=== PATIENT | female | born 1960 | race Caucasian/White ===

== ENCOUNTER → 2017-04-01 | Outpatient (CLI) | payer OTHER ==
[~2017-04-01] MED LIST: BROM5CAP11 PO; CHOL10002 PO; GLUC1500 PO; PHEN100C PO
== END | disposition home or self-care (01) ==
LOC: CFH 11:11
PROVIDERS: ATTEND Nurse Practitioner
DX: Z12.31 Encounter for screening mammogram for malignant neoplasm of breast (principal); M85.88 Other specified disorders of bone density and structure, other site
CPT/HCPCS: 77080; G0202

== ENCOUNTER → 2017-12-29 | Outpatient (CLI) | payer OTHER ==
[~2017-12-29] MED LIST changes: -BROM5CAP11 PO; +BROM5CAP12 PO; -GLUC1500 PO; +GLUC15006 PO
== END ==
LOC: CFH 08:07
PROVIDERS: ATTEND Nurse Practitioner
DX: Z13.820 Encounter for screening for osteoporosis (principal); M85.88 Other specified disorders of bone density and structure, other site; N95.9 Unspecified menopausal and perimenopausal disorder
CPT/HCPCS: 77080

== ENCOUNTER → 2019-02-04 | Outpatient (CLI) | payer OTHER | END | disposition home or self-care (01) | LOC: CFH 09:23 | PROVIDERS: ATTEND Genetic Counselor, MS | DX: Z12.31 Encounter for screening mammogram for malignant neoplasm of breast (principal) | CPT/HCPCS: 77063; 77067 ==

== ENCOUNTER 2019-03-28 14:00 | Outpatient (CLI) | payer OTHER | END 2019-03-28 23:59 | disposition home or self-care (01) | LOC: RAD 14:00 | PROVIDERS: ATTEND Family Medicine | DX: K35.80 Unspecified acute appendicitis (principal); R10.31 Right lower quadrant pain | CPT/HCPCS: 36415; 74178; 82565; J3010; Q9967 ==

== ENCOUNTER 2019-03-28 16:27 | Day surgery (SDC) | payer OTHER ==
[~2019-03-28] VITALS: Ht 165.1 cm; Wt 81.0 kg
[2019-03-28 20:00] VITALS: BP 114/55
== END 2019-03-28 22:35 | disposition home or self-care (01) ==
LOC: ED 16:50 → 4NOR 19:30 → ED 19:30 → OUT 20:40 → 4NOR 22:35 → ED 22:35 → OUT 22:35
PROVIDERS: ATTEND Emergency Medicine
DX: K35.30 Acute appendicitis with localized peritonitis, without perforation or gangrene (principal); G40.909 Epilepsy, unspecified, not intractable, without status epilepticus; Z72.89 Other problems related to lifestyle; Z79.899 Other long term (current) drug therapy
CPT/HCPCS: 36415; 44970; 71045; 80053; 81003; 85025; 85610; 88304; 93005; J0295; J0330; J2175; J2405; J2704; J3010; J3490; G0378